=== PATIENT | female | born 1995 | race Caucasian/White ===

== ENCOUNTER 2021-12-09 12:22 | Emergency (ER) | payer OTHER ==
[~2021-12-09] VITALS: Ht 182.9 cm; Wt 139.0 kg
[2021-12-09 12:27] VITALS: BP 124/71
--- NOTE | 2021-12-09 12:36 | NUR ---
pt ambulated to bed 07 at this time
--- NOTE | 2021-12-09 13:03 | NUR ---
XRAY AT PATIENT BEDSIDE
--- NOTE | 2021-12-09 13:38 | NUR ---
26Y FEMALE FROM HOME DUE ABDNORMAL LABS. PER PATIENT SHE WAS SCHEDULED TO HAVE SURGERY 11/19/21, BUT WAS POSTPONED DUE TP ELEVATED WBC. PER PATIENT "LAST MONTH HER WBC WAS 30,000." PT STATED SHE WAS DX WITH UTI AND PROVIDED WITH ABX. PT HAD REPEAT LABS DONE LAST WEEK AND STATED "HER WBC WAS 70,000 THIS TIME AROUND AND HER SURGERON TOLD HER TO COME TO THE EMERGENCY ROOM." PT DENIES ANY CHEST PAIN, SOB, N/V, FEVER/CHILLS. VITAL SIGNS WNL, PT CURRENT A&OX4, AMBULATORY, AND DENIES ANY PAIN PMH: DENIES NKA
--- NOTE | 2021-12-09 14:06 | NUR ---
manjinder swabbed at this time
--- NOTE | 2021-12-09 14:11 | NUR ---
Freeman dubose in ED - 12/09/21 at 1502 by GAGE pt repositioned at this time, no wounds, pt voided 100ml of dark yellow urine in bed be. urine collected and sent to lab at this time
[2021-12-09 15:01] VITALS: BP 124/71
--- NOTE | 2021-12-09 15:02 | NUR ---
Patient discharged with v/s stable. Written and verbal after care instructions given and explained. Patient verbalized understanding. Ambulatory with steady gait. All questions addressed prior to discharge. Advised to follow up with PMD.
== END 2021-12-09 15:01 | disposition home or self-care (01) ==
LOC: MED 12:22
DX: D72.829 Elevated white blood cell count, unspecified (principal); Z20.822 Contact with and (suspected) exposure to COVID-19
CPT/HCPCS: 71045; 81002; 81025; 87426; 99284; Q0092